=== PATIENT | female | born 1940 | race Caucasian/White ===

== ENCOUNTER 2023-11-29 12:34 | Emergency (ER) | payer MEDICARE ==
[~2023-11-29] VITALS: Ht 167.6 cm; Wt 74.8 kg
[2023-11-29 12:36] VITALS: BP_SYST 138; PULSE 85; RESP 20; TEMP 98.6; O2SAT 98
[2023-11-29] MEDS ORDERED: FAMO20TA8 PO (12:47)
[2023-11-29] MEDS ORDERED: PRO20 PO (12:47)
[2023-11-29] MEDS ORDERED: LOSA-413 PO (12:47)
[2023-11-29] MEDS ORDERED: NOR10 PO (12:47)
[2023-11-29] MEDS ORDERED: VITD2000 PO (12:47)
[2023-11-29] MEDS ORDERED: AZIT500T PO (12:47)
[2023-11-29] MEDS ORDERED: ROCI2 IM (12:47)
[2023-11-29] MEDS ORDERED: ASPI-859 PO (12:47)
[2023-11-29] MEDS: NS 1000 ML IV.SOLN IV ONE (12:57)
[2023-11-29 13:05] LABS: BASOPHILS % (AUTO) 0.2 % (0.0-2.0); EOSINOPHILS % (AUTO) 0.2 % (0.0-4.0); HEMATOCRIT 34.9 % (36-48); HEMOGLOBIN 11.8 g/dL (12.0-16.0); LYMPHOCYTES % (AUTO) 16.8 % (20.5-51.5); MEAN CORPUSCULAR HEMOGLOBIN 32 pg (27-31); MEAN CORPUSCULAR HGB CONC 34 % (32-36); MEAN CORPUSCULAR VOLUME 94 fL (79.0-98.0); MONOCYTES # (AUTO) 0.8 K/uL (0.0-1.0); MONOCYTES % (AUTO) 6.6 % (1.7-9.3); NEUTROPHILS # (AUTO) 8.9 K/uL (1.8-7.7); NEUTROPHILS % (AUTO) 76.2 % (40.0-70.0); PLATELET COUNT (AUTO) 178 K/uL (130-430); RED BLOOD CELL COUNT(AUTO) 3.71 MIL/uL (4.2-6.2); RED CELL DISTRIBUTION WIDTH 13.5 % (9.0-15.0); WHITE BLOOD COUNT (AUTO) 11.7 K/uL (4.8-10.8)
[2023-11-29 13:16] LABS: PROTHROMBIN TIME 10.8 SECS (9.5-12.5)
[2023-11-29 13:17] LABS: ALANINE AMINOTRANSFERASE 18 U/L (12-78); ALBUMIN 2.7 g/dL (3.4-4.8); ANION GAP 10 (5-15); ASPARTATE AMINOTRANSFERASE 24 U/L (10-37); CALCIUM 7.9 mg/dL (8.4-11.0); CARBON DIOXIDE 25 mmol/L (23-29); CHLORIDE 106 mmol/L (98-107); GLUCOSE 96 mg/dL (74-106); POTASSIUM 3.3 mmol/L (3.5-5.1); SODIUM SERUM 141 mmol/L (136-145); TOTAL BILIRUBIN 0.6 mg/dL (0.0-1.0); TOTAL PROTEIN, SERUM 6.6 g/dL (6.4-8.3); UREA NITROGEN, BLOOD 14 mg/dL (8-21)
[2023-11-29 13:31] LABS: BILIRUBIN,DIRECT 0.2 mg/dL (0.0-0.3)
[2023-11-29 13:52] LABS: INFLUENZA TYPE A Negative (NEGATIVE); INFLUENZA TYPE B NEGATIVE (NEGATIVE)
[2023-11-29 15:27] LABS: BILIRUBIN,URINE NEGATIVE (NEGATIVE); CLARITY/URINE CLEAR (CLEAR); GLUCOSE,URINE NEGATIVE (NEGATIVE); KETONES,URINE 1+ (NEGATIVE); LEUKOCYTE ESTERASE ,URINE TRACE (NEGATIVE); NITRITE, URINE NEGATIVE (NEGATIVE); PH,URINE 6.5 (5.0-8.0); PROTEIN URINE 1+ (NEGATIVE); UROBILINOGEN,URINE 0.2 (0.2-1.0)
[2023-11-29] MEDS ORDERED: PIPERACILLIN/TAZOBACTAM 3.375 GM/VIAL (ZOSYN) IV ONE (15:27)
[2023-11-29 15:33] LABS: BLOOD, URINE TRACE (NEGATIVE); COLOR,URINE AMBER (YELLOW)
[2023-11-29] MEDS: PIPERACILLIN/TAZO 3.375 GM in NS 50 ML IV ONE (15:33)
[2023-11-29 15:34] LABS: BACTERIA,URINE FEW /HPF (None Seen); MUCUS,URINE None Seen /LPF (None Seen); RBC,URINE 0-3 /HPF (0-3)
[2023-11-29 18:03] VITALS: BP_SYST 110; PULSE 79; RESP 22; TEMP 97.6; O2SAT 96
== END 2023-11-29 18:03 | disposition short-term general hospital (02) ==
LOC: SED 12:34
DX: J18.9 Pneumonia, unspecified organism (principal); R09.02 Hypoxemia; R06.02 Shortness of breath; Z79.899 Other long term (current) drug therapy; Z20.822 Contact with and (suspected) exposure to COVID-19
CPT/HCPCS: 99285; 96365; 96361; 71045; 87426; 80076; 80048; 81001; 85025; 85610; 85730; 87040; 84484; 36415; 93005; 83605; 87804 ×2; 81000; 81015; J2543; J7030